=== PATIENT | female | born 1990 | race Caucasian/White ===

== ENCOUNTER 2020-01-07 01:18 | Emergency (ER) | payer BC, MEDICAID ==
[2020-01-07 01:37] VITALS: BP 123/82; PULSE 104
[2020-01-07] MEDS ORDERED: Doxycycline 100 MG Cap PO ONE (02:29)
[2020-01-07] MEDS ORDERED: Acetaminophen/HYDROcodone 325-5 MG Tab PO ONE ×2 (02:29→02:38)
--- NOTE | 2020-01-07 02:48 | EDM.PDOC ---
ED HPI GENERAL MEDICAL PROBLEM - General Chief Complaint: Skin Complaint Stated Complaint: PAINFUL LUMP IN LEFT ARMPIT Time Seen by Provider: 01/07/20 02:10 - History of Present Illness INITIAL COMMENTS - FREE TEXT/NARRATIVE: 29-year-old female presents to the emergency room with a painful swelling in her left armpit. This is been getting worse over the last several days patient says it started out like with a pimple. She has never had symptoms like this in the past. No family history of these. This is causing significant discomfort especially if she tries to use her arm for anything. Patient denies any fevers or chills Left Axillary Pain Score (Numeric/FACES): 4 - Related Data Allergies Allergy/AdvReac Type Severity Reaction Status Date / Time No Known Allergies Allergy Verified 01/07/20 01:37 Home Meds: Home Meds Acetaminophen/HYDROcodone [[place] 325-5 MG] 1 tab PO Q4H PRN #15 tablet 01/07/20 [Rx] Doxycycline [Vibramycin] 100 mg PO BID #28 cap 01/07/20 [Rx] Past Medical History - Past Health History Medical/Surgical History: Denies Medical/Surgical History - Infectious Disease History Infectious Disease History: Reports: Chicken Pox Social & Family History - Family History Family Medical History: Noncontributory - Tobacco Use Smoking Status *Q: Current Every Day Smoker Years of Tobacco use: 1 Packs/Tins Daily: 0.1 - Caffeine Use Caffeine Use: Reports: Coffee - Recreational Drug Use Recreational Drug Use: No ED ROS GENERAL - Review of Systems Review Of Systems: See Below Constitutional: Denies: Fever, Chills HEENT: Reports: No Symptoms Respiratory: Reports: No Symptoms Cardiovascular: Reports: No Symptoms GI/Abdominal: Reports: No Symptoms ED EXAM, SKIN/RASH Exam: See Below Exam Limited By: No Limitations General Appearance: Alert, No Apparent Distress Head: Atraumatic, Normocephalic Neck: Normal Inspection, Supple, Non-Tender, Full Range of Motion. No: Lymphadenopathy (L), Lymphadenopathy (R) Respiratory/Chest: No Respiratory Distress, Lungs Clear, Normal Breath Sounds Cardiovascular: Regular Rate, Rhythm, No Edema, No Murmur Skin: Other (In the left axilla the patient looks to have developing hidradenitis. This is 1-1/2 x 2 cm with an area of erythema extending anteriorly no drainage noted at this time) Course - Vital Signs Last Recorded V/S: Last Vital Signs Temp 37.2 C 01/07/20 01:31 Pulse 104 H 01/07/20 01:31 Resp 16 01/07/20 01:31 BP 123/82 01/07/20 01:31 Pulse Ox 96 01/07/20 01:31 - Orders/Labs/Meds Meds: Medications Discontinued Medications Generic Name Dose Route Start Last Admin Trade Name Freq PRN Reason Stop Dose Admin Hydrocodone Bitart/Acetaminophen 1 tab 01/07/20 02:29 [place] 325-5 Mg PO 01/07/20 02:30 ONETIME ONE Hydrocodone Bitart/Acetaminophen 1 tab 01/07/20 02:38 [place] 325-5 Mg PO 01/07/20 02:39 ONETIME ONE Doxycycline Hyclate 100 mg 01/07/20 02:29 Vibramycin PO 01/07/20 02:30 ONETIME ONE - Re-Assessments/Exams Free Text/Narrative Re-Assessment/Exam: 01/07/20 02:47 We will give the patient doxycycline 100 mg twice daily for 2 weeks oftentimes these require therapy out to 2 months it is crucial that she has follow-up in the next week or so to ensure that this is getting better and if not other etiologies need to be considered. Antibiotics should be extended at that point if treatment is doing as expected. Departure - Departure Time of Disposition: 02:48 Disposition: Home, Self-Care 01 Clinical Impression: Hidradenitis suppurativa of left axilla - Discharge Information Prescriptions: Acetaminophen/HYDROcodone [[place] 325-5 MG] 1 tab PO Q4H PRN #15 tablet PRN Reason: Pain Doxycycline [Vibramycin] 100 mg PO BID #28 cap Referrals: PCP,None [Primary Care Provider] - Additional Instructions: Return to the emergency room with any questions problems or worsening symptoms. For this condition you often need to extend the antibiotics to 8 weeks. You have been given a 2-week course. You must have follow-up to make sure this is improving as other things can cause this condition. If you do not have a regular physician, follow-up in the hospital clinic for follow-up in 1 to 2 weeks. Schedule a appointment as soon as you can [phone] Use ibuprofen or Naprosyn as the mainstay for your discomfort and the anti- inflammatory effect for this condition. Sepsis Event Note - Evaluation Sepsis Screening Result: No Definite Risk - Focused Exam Vital Signs: Vital Signs Temp Pulse Resp BP Pulse Ox 01/07/20 01:31 37.2 C 104 H 16 123/82 96 Date Exam was Performed: 01/07/20 Time Exam was Performed: 02:43
== END 2020-01-07 03:08 | disposition home or self-care (01) ==
LOC: JD.ED 01:18
DX: L73.2 Hidradenitis suppurativa (principal); F17.210 Nicotine dependence, cigarettes, uncomplicated
CPT/HCPCS: 99282; A9270; 99283